=== PATIENT | male | born 1965 | race Caucasian/White ===

== ENCOUNTER → 2019-12-30 | Outpatient (CLI) | payer BC, MEDICARE ==
[2019-12-30 12:43] LABS: BASOPHILS ABSOLUTE AUTO 0.05 K/mm3 (0.00-0.23); BASOPHILS PERCENT AUTO 1 % (0-2); EOSINOPHILS ABSOLUTE AUTO 0.48 K/mm3 (0.00-0.68); EOSINOPHILS PERCENT AUTO 5 % (0-6); Hematocrit 42.7 % (37.0-53.0); Hemoglobin 13.4 g/dL (13.5-17.5); IMMATURE GRAN ABSOLUTE AUTO 0.03 K/mm3 (0.00-0.10); IMMATURE GRAN PERCENT AUTO 0 % (0-1); LYMPHOCYTES ABSOLUTE AUTO 1.77 K/mm3 (0.84-5.20); LYMPHOCYTES PERCENT AUTO 17 % (21-46); MONOCYTES ABSOLUTE AUTO 1.14 K/mm3 (0.16-1.47); MONOCYTES PERCENT AUTO 11 % (4-13); Mean Corpuscular HGB 27.7 pg (26.0-34.0); Mean Corpuscular HGB Conc 31.4 g/dL (31.5-36.5); Mean Corpuscular Volume 88 fL (80-100); Mean Platelet Volume 10.7 fL (9.1-12.4); NEUTROPHILS ABSOLUTE AUTO 6.94 K/mm3 (1.96-9.15); NEUTROPHILS PERCENT AUTO 67 % (41-73); Platelet Count 248 K/mm3 (150-400); RDW Coefficient Variation 15.7 % (11.7-14.2); RDW Standard Deviation 50.2 fL (35.1-46.3); Red Blood Cell Count 4.83 M/mm3 (4.30-5.90); White Blood Cell Count 10.41 K/mm3 (4.00-11.30)
== END | disposition home or self-care (01) ==
LOC: LAB SHORT 12:38 → LAB EV 12:38
PROVIDERS: Physician Assistant Surgical
DX: L03.211 Cellulitis of face (principal)
CPT/HCPCS: 85025; 87070; 87075; 87077; 87147; 87186; 87205

== ENCOUNTER → 2020-03-06 | Outpatient (CLI) | payer MEDICARE, BC ==
[2020-03-06 13:58] LABS: Protein, Urine Quantitative 42.7 mg/dL (0.0-11.9)
== END | disposition home or self-care (01) ==
LOC: LAB 10:57 → LAB SHORT 10:57
PROVIDERS: Internal Medicine Nephrology
DX: N18.3 Chronic kidney disease, stage 3 (moderate) (principal); D63.1 Anemia in chronic kidney disease; N25.81 Secondary hyperparathyroidism of renal origin; E55.9 Vitamin D deficiency, unspecified; D51.8 Other vitamin B12 deficiency anemias; D52.8 Other folate deficiency anemias; D50.9 Iron deficiency anemia, unspecified; R80.9 Proteinuria, unspecified; R76.9 Abnormal immunological finding in serum, unspecified; R94.5 Abnormal results of liver function studies; R94.6 Abnormal results of thyroid function studies
CPT/HCPCS: 81050; 82043; 82570; 84156

== ENCOUNTER → 2020-07-17 | Outpatient (CLI) | payer MEDICARE, BC ==
[~2020-07-17] MED LIST: CLON.1 PO; Colace250 MG PO; LEVFLO500 PO; Norco 5-325 Ta1 EACH PO; Prinivil10 MG PO; Roxicodone5 MG PO
[2020-07-23 07:08] LABS: TRICYCLIC ANTIDEP Negative ng/mL (Cutoff=100)
== END ==
LOC: LAB EV 16:35
PROVIDERS: Family Medicine
DX: G89.4 Chronic pain syndrome (principal)
CPT/HCPCS: G0480; G0481

== ENCOUNTER 2021-01-15 21:38 | Emergency (ER) | payer MEDICARE, BC ==
[~2021-01-15] VITALS: Ht 193 cm; Wt 142.9 kg
[2021-01-16] MEDS ORDERED: Roxicodone5 MG PO ×2 (00:06→00:11)
== END 2021-01-16 00:20 | disposition home or self-care (01) ==
LOC: ER 21:38
DX: M51.35 Other intervertebral disc degeneration, thoracolumbar region (principal); G89.29 Other chronic pain; Z88.6 Allergy status to analgesic agent
CPT/HCPCS: 99282; A9270

== ENCOUNTER 2021-02-07 20:05 | Emergency (ER) | payer MEDICARE, BC ==
[~2021-02-07] VITALS: Ht 193 cm; Wt 142.9 kg
[~2021-02-07 20:05] MED LIST changes: -CLON.1 PO; -Colace250 MG PO; -LEVFLO500 PO; -Norco 5-325 Ta1 EACH PO; -Prinivil10 MG PO
[2021-02-07] MEDS ORDERED: CLON.1 PO (22:05)
[2021-02-07] MEDS ORDERED: Prinivil10 MG PO (22:05)
[2021-02-07 22:15] LABS: Source, Urine Voided
[2021-02-07 22:18] LABS: Bilirubin, Urine Neg (Neg); Blood, Urine Neg (Neg); Glucose Qualitative, Urine Neg (Neg); Ketones, Urine Neg (Neg); Leukocyte Esterase, Urine Neg (Neg); Nitrite, Urine Neg (Neg); Protein, Urine 2+ (Neg); Urobilinogen, Urine NORM (Normal)
[2021-02-07 22:24] LABS: Appearance, Urine Clear (Clear); Color, Urine Yellow (P-Yellow); Red Blood Cells, Urine Not Seen /hpf (0-2); White Blood Cells, Urine Not Seen /hpf (0-5)
[2021-02-07 22:25] LABS: Bacteria Not Seen /hpf; Mucus Light (0-Heavy); Squamous Epithelial Cells Not Seen /hpf (Few)
[2021-02-07] MEDS ORDERED: LEVFLO500 PO (22:56)
[2021-02-07] MEDS ORDERED: Colace250 MG PO (22:56)
[2021-02-07] MEDS ORDERED: Norco 5-325 Ta1 EACH PO (22:56)
== END 2021-02-07 23:45 | disposition home or self-care (01) ==
LOC: ER 20:05
PROVIDERS: Emergency Medicine
DX: N45.1 Epididymitis (principal); Z79.899 Other long term (current) drug therapy
CPT/HCPCS: 76870; 81001; 96372; 99284-25; A9270; J0696

== ENCOUNTER 2022-01-14 12:17 | Inpatient (IN) | payer MEDICARE, BC ==
[~2022-01-14] VITALS: Ht 193 cm; Wt 136.1 kg
[~2022-01-14 12:17] MED LIST changes: +CLON.1 PO; +Colace250 MG PO; +LEVFLO500 PO; +Norco 5-325 Ta1 EACH PO; +Prinivil10 MG PO
[2022-01-14 14:41] LABS: BASOPHILS ABSOLUTE AUTO 0.03 K/mm3 (0.00-0.23); BASOPHILS PERCENT AUTO 0 % (0-2); EOSINOPHILS ABSOLUTE AUTO 0.27 K/mm3 (0.00-0.68); EOSINOPHILS PERCENT AUTO 3 % (0-6); Hematocrit 41.8 % (37.0-53.0); Hemoglobin 13.7 g/dL (13.5-17.5); IMMATURE GRAN ABSOLUTE AUTO 0.02 K/mm3 (0.00-0.10); IMMATURE GRAN PERCENT AUTO 0 % (0-1); LYMPHOCYTES ABSOLUTE AUTO 1.52 K/mm3 (0.84-5.20); LYMPHOCYTES PERCENT AUTO 18 % (21-46); MONOCYTES PERCENT AUTO 16 % (4-13); Mean Corpuscular HGB 27.3 pg (26.0-34.0); Mean Corpuscular HGB Conc 32.8 g/dL (31.5-36.5); Mean Corpuscular Volume 83 fL (80-100); Mean Platelet Volume 11.6 fL (9.1-12.4); NEUTROPHILS ABSOLUTE AUTO 5.15 K/mm3 (1.96-9.15); NEUTROPHILS PERCENT AUTO 62 % (41-73); Platelet Count 169 K/mm3 (150-400); RDW Coefficient Variation 14.9 % (11.7-14.2); RDW Standard Deviation 45.2 fL (35.1-46.3); Red Blood Cell Count 5.02 M/mm3 (4.30-5.90); White Blood Cell Count 8.29 K/mm3 (4.00-11.30)
[2022-01-14 15:13] LABS: Albumin, Blood 3.6 g/dL (3.4-5.0); Albumin/Globulin Ratio 0.8 (0.8-1.8); Bilirubin, Total 0.7 mg/dL (0.1-1.0); Bun/Creatinine Ratio 14.3 (12.0-20.0); Calcium, Blood 8.7 mg/dL (8.5-10.1); Creatinine, Blood 5.37 mg/dL (0.60-1.20); Globulin, Blood 4.7 g/dL (2.2-4.0); Magnesium, Blood 3.1 mg/dL (1.6-2.4); Potassium, Blood 3.8 mmol/L (3.5-5.5); Total Protein, Blood 8.3 g/dL (6.4-8.2)
[2022-01-14 16:58] LABS: Influenza A, PCR NEGATIVE (NEGATIVE); Influenza B, PCR NEGATIVE (NEGATIVE); Resp Syncytial Virus, PCR NEGATIVE (NEGATIVE); SARS-Cov-2 (COVID-19) PCR, MMC NEGATIVE (NEGATIVE)
[2022-01-14 17:39] LABS: Source, Urine Clean Catch
[2022-01-14 17:41] LABS: Appearance, Urine Clear (Clear); Bilirubin, Urine Neg (Neg); Blood, Urine 3+ (Neg); Color, Urine Yellow (P-Yellow); Glucose Qualitative, Urine 4+ (Neg); Ketones, Urine Neg (Neg); Leukocyte Esterase, Urine Neg (Neg); Nitrite, Urine Neg (Neg); Protein, Urine 2+ (Neg); Specific Gravity, Urine 1.015 (1.003-1.022); Urobilinogen, Urine NORM (Normal)
[2022-01-14 17:51] LABS: Bacteria Few /hpf; Squamous Epithelial Cells Rare /hpf (Few); White Blood Cells, Urine 0-2 /hpf (0-5)
[2022-01-14] MEDS ORDERED: FARXIGA10 MG PO (18:06)
[2022-01-14] MEDS ORDERED: BUPRENORPHINE HC2 M1 SL (18:06)
[2022-01-14] MEDS ORDERED: FUROSEMIDE20 MG PO (18:06)
[2022-01-14] MEDS ORDERED: ENDOCET 7.5-321 EACH PO (18:07)
[2022-01-14] MEDS ORDERED: DEPO-TESTO200 MG/18 IM (20:43)
[2022-01-14 23:00] LABS: Bun/Creatinine Ratio 18.8 (12.0-20.0); Calcium, Blood 8.5 mg/dL (8.5-10.1); Creatinine, Blood 3.82 mg/dL (0.60-1.20); Potassium, Blood 3.9 mmol/L (3.5-5.5)
--- NOTE | 2022-01-15 03:32 | NUR ---
ADMISSION: PT IS A/OX4. THE PT WAS SENT IN FROM DR. JOSUE FOR ABNORMAL LABS. PT IS ABLE TO AMBULATE W/O ANY DIFFICULTY. 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 HE CURRENTLY HAS NS @ 100 IN THE . AC. A NEPHROLOGY CONSULT IS IN; RENAL PANEL AND RENAL US IS SCHEDULED FOR THE A.M. RI HAS CHRONIC PAIN AND HE'S BEEN MEDICATED PER EMAR. THE PT HAS BEEN VERY PLEASANT AND COOPERATIVE W/ ALL CARE. WE'LL CONTINUE TO MONITOR THE REMAINDER OF THE SHIFT.
[2022-01-15] MEDS ORDERED: MONT10T PO (05:11)
[2022-01-15] MEDS ORDERED: LISI20 PO (05:11)
[2022-01-15] MEDS ORDERED: EXEM25 PO (05:12)
[2022-01-15] MEDS ORDERED: CETI5 PO (05:13)
[2022-01-15] MEDS ORDERED: MONT10T (05:13)
[2022-01-15 05:46] LABS: BASOPHILS ABSOLUTE AUTO 0.01 K/mm3 (0.00-0.23); BASOPHILS PERCENT AUTO 0 % (0-2); EOSINOPHILS ABSOLUTE AUTO 0.29 K/mm3 (0.00-0.68); EOSINOPHILS PERCENT AUTO 6 % (0-6); Hemoglobin 12.1 g/dL (13.5-17.5); IMMATURE GRAN ABSOLUTE AUTO 0.02 K/mm3 (0.00-0.10); IMMATURE GRAN PERCENT AUTO 0 % (0-1); LYMPHOCYTES ABSOLUTE AUTO 1.35 K/mm3 (0.84-5.20); LYMPHOCYTES PERCENT AUTO 26 % (21-46); MONOCYTES ABSOLUTE AUTO 0.94 K/mm3 (0.16-1.47); MONOCYTES PERCENT AUTO 18 % (4-13); Mean Corpuscular HGB 27.6 pg (26.0-34.0); Mean Corpuscular HGB Conc 32.7 g/dL (31.5-36.5); Mean Corpuscular Volume 84 fL (80-100); Mean Platelet Volume 11.3 fL (9.1-12.4); NEUTROPHILS PERCENT AUTO 49 % (41-73); Platelet Count 160 K/mm3 (150-400); RDW Coefficient Variation 14.8 % (11.7-14.2); RDW Standard Deviation 45.3 fL (35.1-46.3); Red Blood Cell Count 4.39 M/mm3 (4.30-5.90); White Blood Cell Count 5.11 K/mm3 (4.00-11.30)
[2022-01-15 06:14] LABS: Albumin, Blood 2.9 g/dL (3.4-5.0); Albumin/Globulin Ratio 0.7 (0.8-1.8); Bilirubin, Direct 0.1 mg/dL (0.0-0.3); Bilirubin, Indirect 0.2 mg/dL (0.1-0.7); Bilirubin, Total 0.3 mg/dL (0.1-1.0); Bun/Creatinine Ratio 22.6 (12.0-20.0); Calcium, Blood 8.7 mg/dL (8.5-10.1); Creatinine, Blood 2.88 mg/dL (0.60-1.20); Globulin, Blood 4.3 g/dL (2.2-4.0); Phosphorus, Blood 6.2 mg/dL (2.5-4.9); Potassium, Blood 4.2 mmol/L (3.5-5.5); Total Protein, Blood 7.2 g/dL (6.4-8.2); Uric Acid, Blood 12.2 mg/dL (3.5-7.2)
--- NOTE | 2022-01-15 06:30 | NUR ---
SHIFT SUMMARY: PT IS A/OX4. HE WAS INDEPENDENT IN THE ROOM. PT BROUGHT IN PERSONAL CPAP AND WORE IT WHILE SLEEPING, OTHERWISE HE'S ON RA. THE ARE NO CHANGES TO REPORT THIS SHIFT.
--- NOTE | 2022-01-15 09:59 | NUR ---
ORTHOSTATIC VS LYING: B/P 105/56 HR 68 SITTING: B/P 95/62 HR 70 STANDING: B/P 106/72 HR 82
[2022-01-15] MEDS ORDERED: SYMBICORT 160-4.6 GM INH (11:01)
--- NOTE | 2022-01-15 18:23 | NUR ---
PATIENT A/OX4, UP INDEPENDENTLY IN ROOM. VSS, ON RA WITH CPAP AT NIGHT. SR ON TELE, DENIES ANY CP OR PRESSURE. SKIN INTACT. ACHS BLOOD SUGARS, TOLERATING ADA DIET. DENIES ANY DIZZINESS, ORTHOSTATIC VS WERE NEGATIVE THIS AM. LR @ 125ML/HR INFUSING. REPORTS R SHOULDER PAIN THAT IS CHRONIC, BUPRENORPHINE SCHEDULED TO TREAT AND TYLENOL GIVEN FOR BREAKTHROUGH X1 THIS SHIFT. PLEASANT AND COOPERATIVE WITH CARE, CALLS APPROPRIATELY FOR ASSISTANCE.
--- NOTE | 2022-01-16 04:34 | NUR ---
SHIFT SUMMARY NO ACUTE CHANGES TO PT STATUS. PT DENIES N/V. PT HAVING SOME PAIN IN R SHOULDER AND R KIDNEY AREA. PT HAS BEEN MEDICATED NEEDED PER EMAR. CALL LIGHT IS WITHIN PT REACH AND PT STS UNDERSTANDING OF HOW TO USE IT.
[2022-01-16 05:44] LABS: BASOPHILS ABSOLUTE AUTO 0.03 K/mm3 (0.00-0.23); BASOPHILS PERCENT AUTO 1 % (0-2); EOSINOPHILS ABSOLUTE AUTO 0.42 K/mm3 (0.00-0.68); EOSINOPHILS PERCENT AUTO 7 % (0-6); Hemoglobin 13.6 g/dL (13.5-17.5); IMMATURE GRAN ABSOLUTE AUTO 0.01 K/mm3 (0.00-0.10); IMMATURE GRAN PERCENT AUTO 0 % (0-1); LYMPHOCYTES ABSOLUTE AUTO 1.29 K/mm3 (0.84-5.20); LYMPHOCYTES PERCENT AUTO 23 % (21-46); MONOCYTES ABSOLUTE AUTO 0.69 K/mm3 (0.16-1.47); MONOCYTES PERCENT AUTO 12 % (4-13); Mean Corpuscular HGB 27.1 pg (26.0-34.0); Mean Corpuscular HGB Conc 30.9 g/dL (31.5-36.5); Mean Corpuscular Volume 88 fL (80-100); Mean Platelet Volume 11.6 fL (9.1-12.4); NEUTROPHILS ABSOLUTE AUTO 3.28 K/mm3 (1.96-9.15); NEUTROPHILS PERCENT AUTO 57 % (41-73); Platelet Count 195 K/mm3 (150-400); RDW Standard Deviation 48.2 fL (35.1-46.3); Red Blood Cell Count 5.02 M/mm3 (4.30-5.90); White Blood Cell Count 5.72 K/mm3 (4.00-11.30)
[2022-01-16 06:25] LABS: Albumin, Blood 3.4 g/dL (3.4-5.0); Anion Gap 6 mmol/L (6-16); Blood Urea Nitrogen 41 mg/dL (8-24); Bun/Creatinine Ratio 30.1 (12.0-20.0); CO2, Blood 26 mmol/L (21-32); Calcium, Blood 9.5 mg/dL (8.5-10.1); Chloride, Blood 104 mmol/L (98-108); Creatinine, Blood 1.36 mg/dL (0.60-1.20); Glomerular Filtration Rate 61 (60-); Glucose, Blood 312 mg/dL (70-99); Potassium, Blood 4.8 mmol/L (3.5-5.5); Sodium, Blood 136 mmol/L (136-145)
[2022-01-16 06:26] LABS: Phosphorus, Blood 2.8 mg/dL (2.5-4.9)
[2022-01-16] MEDS ORDERED: INSULIN GL100 UNIT/3 SC (12:08)
--- NOTE | 2022-01-16 12:55 | NUR ---
DISCHARGE NOTE- PT WAS GIVEN VERBAL AND WRITTEN DISCHARGE INSTRUCTIONS AND ACKNOWLEDGED UNDERSTANDING OF THEM. IV AND TELE DC'D AT THE TIME OF DISCHARGE. PT WAS GIVEN HARD COPY SCRIPTS FOR INSULIN PEN NEEDLES AND LAB DRAW FOR 01-21-22. PT IS CURRENTLY GETTING HIMSELF READY TO GO HOME AND WILL BE ESCORTED OUT VIA WC BY THE HARBOR MASTER. NO S&S OF DISTRESS NOTED.
== END 2022-01-16 13:02 | disposition home or self-care (01) | DRG 683 ==
LOC: ER 12:17 → MEDS 21:33
PROVIDERS: Family Medicine; Physician Assistant; ADMIT Internal Medicine
DX: N17.9 Acute kidney failure, unspecified (principal); E87.1 Hypo-osmolality and hyponatremia; E11.22 Type 2 diabetes mellitus with diabetic chronic kidney disease; N18.30 Chronic kidney disease, stage 3 unspecified; E86.0 Dehydration; G89.29 Other chronic pain; J44.9 Chronic obstructive pulmonary disease, unspecified; K21.9 Gastro-esophageal reflux disease without esophagitis; I12.9 Hypertensive chronic kidney disease with stage 1 through stage 4 chronic kidney disease, or unspecified chronic kidney disease; G47.33 Obstructive sleep apnea (adult) (pediatric); R55 Syncope and collapse; R79.89 Other specified abnormal findings of blood chemistry; E86.1 Hypovolemia; D64.9 Anemia, unspecified; E83.39 Other disorders of phosphorus metabolism; E88.09 Other disorders of plasma-protein metabolism, not elsewhere classified; Q98.4 Klinefelter syndrome, unspecified; Z96.653 Presence of artificial knee joint, bilateral; F17.220 Nicotine dependence, chewing tobacco, uncomplicated; Z20.822 Contact with and (suspected) exposure to COVID-19; R94.31 Abnormal electrocardiogram [ECG] [EKG]; M25.511 Pain in right shoulder; M54.9 Dorsalgia, unspecified; Z87.19 Personal history of other diseases of the digestive system; Z98.890 Other specified postprocedural states; Z88.5 Allergy status to narcotic agent; Z88.8 Allergy status to other drugs, medicaments and biological substances; Z90.13 Acquired absence of bilateral breasts and nipples; Z79.01 Long term (current) use of anticoagulants; Z79.811 Long term (current) use of aromatase inhibitors; Z79.891 Long term (current) use of opiate analgesic; Z79.899 Other long term (current) drug therapy; Z79.84 Long term (current) use of oral hypoglycemic drugs
CPT/HCPCS: 0241U; 36415; 74176; 80048; 80053; 80069; 81001; 82248; 82550; 82947; 83036; 83690; 83735; 84100; 84484; 84550; 85018; 85025; 93005; 93010; 94640; 94664; 94762; 96360; 96361; 99285-25; A9270; J1650; J7030; J7120

== ENCOUNTER 2022-10-10 00:34 | Day surgery (SDC) | payer MEDICARE, BC ==
[~2022-10-10 00:34] MED LIST changes: +BUPRENORPHINE HC2 M1 SL; +CETI5 PO; +DEPO-TESTO200 MG/18 IM; +ENDOCET 7.5-321 EACH PO; +EXEM25 PO; +FARXIGA10 MG PO; +FUROSEMIDE20 MG PO; +INSULIN GL100 UNIT/3 SC; +LISI20 PO; +MONT10T; +MONT10T PO; +SYMBICORT 160-4.6 GM INH
[2022-10-10] MEDS ORDERED: FENOFIBRATE48 MG PO (09:05)
[2022-10-10] MEDS ORDERED: GLIP2.5ER PO (09:06)
== END 2022-10-10 10:05 | disposition home or self-care (01) ==
LOC: ATC 00:34
DX: E27.40 Unspecified adrenocortical insufficiency (principal); N18.2 Chronic kidney disease, stage 2 (mild); I12.9 Hypertensive chronic kidney disease with stage 1 through stage 4 chronic kidney disease, or unspecified chronic kidney disease; D63.1 Anemia in chronic kidney disease; D50.9 Iron deficiency anemia, unspecified; E11.22 Type 2 diabetes mellitus with diabetic chronic kidney disease; G90.9 Disorder of the autonomic nervous system, unspecified
CPT/HCPCS: 80400; 82533; 96374; J0834

== ENCOUNTER 2023-05-21 07:41 | Emergency (ER) | payer OTHER, MEDICARE, BC ==
[~2023-05-21] VITALS: Ht 193 cm; Wt 147.4 kg
[~2023-05-21 07:41] MED LIST changes: +FENOFIBRATE48 MG PO; +GLIP2.5ER PO
[2023-05-21 08:52] VITALS: BP 137/83
[2023-05-21] MEDS ORDERED: Percocet 5-3251 EACH PO (09:58)
== END 2023-05-21 10:19 | disposition home or self-care (01) ==
LOC: ER 07:41
DX: S63.591A Other specified sprain of right wrist, initial encounter (principal); I12.9 Hypertensive chronic kidney disease with stage 1 through stage 4 chronic kidney disease, or unspecified chronic kidney disease; N18.9 Chronic kidney disease, unspecified; J44.9 Chronic obstructive pulmonary disease, unspecified; W01.0XXA Fall on same level from slipping, tripping and stumbling without subsequent striking against object, initial encounter; Z88.6 Allergy status to analgesic agent; Z88.8 Allergy status to other drugs, medicaments and biological substances; Z79.811 Long term (current) use of aromatase inhibitors; Z79.4 Long term (current) use of insulin; Z79.51 Long term (current) use of inhaled steroids; Z79.899 Other long term (current) drug therapy; Z79.84 Long term (current) use of oral hypoglycemic drugs; R74.01 Elevation of levels of liver transaminase levels; R93.2 Abnormal findings on diagnostic imaging of liver and biliary tract; E78.5 Hyperlipidemia, unspecified; Z12.5 Encounter for screening for malignant neoplasm of prostate
CPT/HCPCS: 36415; 73110; 73130; 76700; 80048; 80061; 80076; 99283-25; A9270; G0103

== ENCOUNTER → 2024-05-26 | Outpatient (CLI) | payer MEDICARE, BC ==
[~2024-05-26] MED LIST changes: +Percocet 5-3251 EACH PO
[2024-05-27 13:46] LABS: Creatinine Urine 38.5 mg/dL (27.00-270.00); Protein, Urine Quantitative 16.8 mg/dL (0.0-11.9)
[2024-05-27 13:49] LABS: Microalbumin, Urine Quant. 84.1 mg/L (0.000-20.000)
== END ==
LOC: LAB 12:05 → LAB SHORT 12:05 → LAB FUT 05-20 07:50
PROVIDERS: Internal Medicine Nephrology
DX: N18.2 Chronic kidney disease, stage 2 (mild) (principal); D63.1 Anemia in chronic kidney disease; N25.81 Secondary hyperparathyroidism of renal origin; R94.6 Abnormal results of thyroid function studies; R94.5 Abnormal results of liver function studies; N40.1 Benign prostatic hyperplasia with lower urinary tract symptoms; R76.9 Abnormal immunological finding in serum, unspecified; E78.00 Pure hypercholesterolemia, unspecified; E55.9 Vitamin D deficiency, unspecified
CPT/HCPCS: 81050; 82043; 82570; 84156

== ENCOUNTER → 2024-10-10 | Outpatient (CLI) | payer MEDICARE, BC ==
[2024-10-11 12:14] LABS: Creatinine Urine 34.5 mg/dL (27.00-270.00); Protein, Urine Quantitative 10.1 mg/dL (0.0-11.9)
[2024-10-11 12:26] LABS: Microalbumin, Urine Quant. 20.5 mg/L (0.000-20.000)
== END ==
LOC: LAB 23:25 → LAB SHORT 23:25
PROVIDERS: Internal Medicine Nephrology
DX: N18.30 Chronic kidney disease, stage 3 unspecified (principal); R80.9 Proteinuria, unspecified
CPT/HCPCS: 81050; 82043; 82570; 84156

== ENCOUNTER 2025-05-11 08:48 | Emergency (ER) | payer MEDICARE, BC ==
[~2025-05-11] VITALS: Ht 193 cm; Wt 151.1 kg
[~2025-05-11 08:48] MED LIST changes: +BASAGLAR K100 UNIT/1 SC; -INSULIN GL100 UNIT/3 SC
[2025-05-11] MEDS ORDERED: Ipratropium/Albuterol SulF 2.5-0.5MG/3 ML Amp INH ONE (09:20)
[2025-05-11 10:01] LABS: BASOPHILS ABSOLUTE AUTO 0.04 K/mm3 (0.00-0.23); BASOPHILS PERCENT AUTO 1 % (0-2); EOSINOPHILS ABSOLUTE AUTO 0.16 K/mm3 (0.00-0.68); EOSINOPHILS PERCENT AUTO 2 % (0-6); Hematocrit 48.3 % (37.0-53.0); Hemoglobin 15.7 g/dL (13.5-17.5); IMMATURE GRAN ABSOLUTE AUTO 0.04 K/mm3 (0.00-0.10); IMMATURE GRAN PERCENT AUTO 1 % (0-1); LYMPHOCYTES ABSOLUTE AUTO 2.16 K/mm3 (0.84-5.20); LYMPHOCYTES PERCENT AUTO 26 % (21-46); MONOCYTES ABSOLUTE AUTO 0.72 K/mm3 (0.16-1.47); MONOCYTES PERCENT AUTO 9 % (4-13); Mean Corpuscular HGB Conc 32.5 g/dL (31.5-36.5); Mean Corpuscular Volume 85 fL (80-100); NEUTROPHILS ABSOLUTE AUTO 5.09 K/mm3 (1.96-9.15); NEUTROPHILS PERCENT AUTO 62 % (41-73); NRBC ABSOLUTE 0.00 K/mm3 (0.00-0.02); NRBC Auto 0.0 /100 WBC (0.0-0.2); Platelet Count 211 K/mm3 (150-400); RDW Coefficient Variation 16.5 % (11.7-14.2); RDW Standard Deviation 50.7 fL (35.1-46.3)
[2025-05-11 10:30] LABS: Alanine Aminotransfer (ALT/SGP 99.0 U/L (12-78); Albumin, Blood 3.7 g/dL (3.4-5.0); Albumin/Globulin Ratio 0.9 (0.8-1.8); Anion Gap 8.0 mmol/L (3-11); Aspartate Aminotrans (AST/SGOT 44.0 U/L (12-37); Bilirubin, Total 0.4 mg/dL (0.1-1.0); Blood Urea Nitrogen 18.0 mg/dL (8-24); CO2, Blood 25.0 mmol/L (21-32); Calcium, Blood 9.7 mg/dL (8.5-10.1); Chloride, Blood 108.0 mmol/L (98-108); Creatinine, Blood 1.42 mg/dL (0.60-1.20); Globulin, Blood 4.1 g/dL (2.2-4.0); Glucose, Blood 299.0 mg/dL (70-99); Potassium, Blood 4.0 mmol/L (3.5-5.5); Sodium, Blood 137.0 mmol/L (136-145); Total Protein, Blood 7.8 g/dL (6.4-8.2)
[2025-05-11] MEDS ORDERED: METR250 PO (11:36)
[2025-05-11] MEDS ORDERED: AMOX-CLAV 875-1 EAC5 PO (11:36)
[2025-05-11] MEDS ORDERED: ATOR10 PO (11:40)
[2025-05-11] MEDS ORDERED: ALBU2.5V5 INH (11:41)
[2025-05-11] MEDS ORDERED: Dexamethasone Sod Phos 10 MG/ML 1ML VIAL IV ONE (12:40)
[2025-05-11 13:45] VITALS: BP 165/74
== END 2025-05-11 13:48 | disposition home or self-care (01) ==
LOC: ER 08:48
PROVIDERS: Emergency Medicine
DX: J45.901 Unspecified asthma with (acute) exacerbation (principal); I12.9 Hypertensive chronic kidney disease with stage 1 through stage 4 chronic kidney disease, or unspecified chronic kidney disease; N18.30 Chronic kidney disease, stage 3 unspecified; J44.9 Chronic obstructive pulmonary disease, unspecified; R73.03 Prediabetes; Z79.899 Other long term (current) drug therapy; Z88.8 Allergy status to other drugs, medicaments and biological substances; Z79.4 Long term (current) use of insulin; Z79.2 Long term (current) use of antibiotics
CPT/HCPCS: 71046; 80053; 84484; 85025; 85379; 93005; 93010; 96374; 99285-25; J1100

== ENCOUNTER → 2025-06-09 | Outpatient (CLI) | payer MEDICARE, BC ==
[~2025-06-09] MED LIST changes: +ALBU2.5V5 INH; +AMOX-CLAV 875-1 EAC5 PO; +ATOR10 PO; +METR250 PO
[2025-06-10 19:48] LABS: Campylobacter Sp Not Detected (NOT DETECT); E. Coli O157 Not Detected (NOT DETECT); Enteroaggregative E. coli-EAEC Not Detected (NOT DETECT); Enteropathogenic E. coli-EPEC Not Detected (NOT DETECT); Enterotoxigenic E. coli-ETEC Not Detected (NOT DETECT); Salmonella Sp Not Detected (NOT DETECT); Shiga Toxin-prod E. coli-STEC Not Detected (NOT DETECT); Shigella/Enteroin E. coli-EIEC Not Detected (NOT DETECT); Vibrio Sp Not Detected (NOT DETECT)
== END ==
LOC: LAB SHORT 09:48 → LAB 09:48
PROVIDERS: Nurse Practitioner Family
DX: R19.4 Change in bowel habit (principal)
CPT/HCPCS: 87507